=== PATIENT | male | born 1965 | race Caucasian/White ===

== ENCOUNTER 2020-11-03 12:05 | Emergency (ER) | payer MEDICARE, MEDICAID ==
[~2020-11-03] VITALS: Ht 180.3 cm; Wt 59.0 kg
--- NOTE | ~2020-11-03 | EMS ---
[address] [place] [address] EMS Patient Care Report Name: TRISTAN COLIN Room: [facility]#: [id number] Admission: 11/03/20 Attend Phys: Discharge: Date of : 63 Report #: [id number] THIS REPORT FOR: //name// Report Transmitted: 11/03/2020 11:48 EMS Care Summary [facility] [place] Incident [id number] @ 11/03/2020 11:31 Incident Location [address] [place] [id number] Patient TRISTAN COLIN Male, 55 Years 1965 Patient Address [place] [address] Patient History Cerebral infarction, unspecified,Chronic Obstructive Pulmonary Disease (COPD),Anxiety disorder, unspecified, Patient Allergies No known allergies, Chief Complaint Chest Pain Disposition Transported No Lights/[place] Dispatch Reason Chest Pain (Non-Traumatic) Transported To [facility] Narrative UPON OUR ARRIVAL THE PT WAS FOUND IN THE CARE OF [facility] AND WAS WALKED TO THE AMBULANCE. THE PT STATED THAT HE HAD BEEN EXPERIENCING SHARP AND STABBING PAIN IN HIS CHEST LAST NIGHT AND NOW WANTED TO BE SEEN FOR IT. THE PT HAD NO RADIATION AND THE PT RATED IT A 9/10 HE RESTED COMFORTABLY ON THE COT. THE PT HAD THE SAME PAIN UPON INSPIRATION AND PALPATION. THE PT WAS PROPERLY [address] [place] [address] EMS Patient Care Report Name: TRISTAN COLIN Room: [facility]#: [id number] Admission: 11/03/20 Attend Phys: Discharge: Date of : 63 Report #: [id number] SECURED USING THE SHEETS ON THE COT. ONCE ON THE AMBULANCE WE OBTAINED VITALS AND PLACED THE PT ONTO THE BRANCH OPERATIONS MANAGER TO OBTAIN A 12-LEAD. THE 12-LEAD SHOWED A REGULAR SINUS RHYTHM. A DETAILED PHYSICAL EXAM YIELDED NO FURTHER FINDINGS. I OBTAINED VASCULAR ACCESS IN THE PT'S LEFT BICEP USING AN 18 GAUGE IV CATHETER. THE IV SITE WAS FLUSHED, PATENT, AND SECURED USING A SALINE LOCK. THE PT WAS CONTINUOUSLY MONITORED DURING TRANSPORT AND I OBTAINED A SECOND SET OF VITALS PRIOR TO OUR ARRIVAL. AT THE HOSPITAL THE PT WAS MOVED INDOORS VIA THE COT AND THEN TRANSFERRED TO HIS BED WITH ASSISTANCE. PT REPORT WAS GIVEN TO THE RN IN THE ROOM AND PT CARE WAS TRANSFERRED WITH NO SIGNIFICANT CHANGES IN THE PT'S STATUS OR CONDITION. ALL TIMES ARE APPROXIMATE. Initial Vitals @11:36SpO2: 98, @11:56SpO2: 96, @11:45 @11:38P: 116,R: 18,BP: 108/60, @11:55P: 98,R: 16,BP: 128/80, @11:38GCS: 15, @11:55GCS: 15, @11:40Glucose: 94, Assessments @11:36MENTAL:SKIN:HEENT:LUNG SOUNDS:ABDOMEN:PELVIS//GI:EXTREMITIES:PULSE:NEURO: Impression Angina pectoris Procedures @11:39 cc () Site: Other Peripheral (Not Listed)Response: UnchangedSucceeded@11:40 cc () Response: UnchangedSucceeded@11:4512-Lead ECGResponse: UnchangedSucceeded Timeline 11:30,Call Received :,Dispatch Notified :,Psap Call 11:31,Dispatched 11:31,En Route 11:36,On Scene 11:36,At Patient 11:36,BP: / M,PULSE: ,RR: R,SPO2: 98 Ox,ETCO2: ,BG: ,PAIN: ,GCS: , 11:38,BP: 108/60 M,PULSE: 116,RR: 18 R,SPO2: Ox,ETCO2: ,BG: ,PAIN: ,GCS: , 11:38,BP: / M,PULSE: ,RR: R,SPO2: Ox,ETCO2: ,BG: ,PAIN: ,GCS: 15, 11:39, cc Site: Other Peripheral (Not Listed),Response: UnchangedSucceeded, 11:40, cc Site: ,Response: UnchangedSucceeded, [place] [address] EMS Patient Care Report Name: [facility]STAN COLIN [id number] Admission: 11/03/20 Attend Phys: Discharge: Date of : 63 Report #: [id number] 11:40,BP: / M,PULSE: ,RR: R,SPO2: Ox,ETCO2: ,B,PAIN: ,GCS: , 11:45,12-Lead ECG,Response: UnchangedSucceeded, 11:45,BP: / M,PULSE: ,RR: R,SPO2: Ox,ETCO2: ,BG: ,PAIN: ,GCS: , 11:47,Depart Scene 11:55,BP: 128/80 M,PULSE: 98,RR: 16 R,SPO2: Ox,ETCO2: ,BG: ,PAIN: ,GCS: , 11:55,BP: / M,PULSE: ,RR: R,SPO2: Ox,ETCO2: ,BG: ,PAIN: ,GCS: 15, 11:56,BP: / M,PULSE: ,RR: R,SPO2: 96 Ox,ETCO2: ,BG: ,PAIN: ,GCS: , 12:03,At Destination 12:18,Call Closed Disclaimer v1.1 Copyright 2020 [employer] This EMS Care Summary contains data elements from the applicable legal record (which may be displayed differently). It is designed to provide pertinent information for the following purposes: continuity of care, clinical quality, and state data reporting. The complete legal record is available to ED staff and administrators of the receiving hospital in [employer]. All data is provided "as is."
[~2020-11-03 12:05] MED LIST: ACCUNEB SO1.25 MG/1; BENZTROPINE MES1 MG PO; GEODON40 MG PO; INVEGA6 MG PO; MINIPRESS2 MG PO; PREDNISONE 10 M10 MG PO; PREDNISONE 20 M20 MG PO; PROAIR HFA8.5 GM INH; TOPAMAX 25 MG T25 M1 PO; VISTARIL 25 MG25 M1 PO; VITAMIN D3125 MC1 PO; [UNRECOGNIZED DRUG - OTHER] PO
[2020-11-03 12:16] VITALS: BP 134/72
--- NOTE | 2020-11-04 09:16 | EKG ---
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: : [id number] Requested By: Pierce Llanos Order Number: [id number] MD: Kobi Prescott Measurements Intervals [place] Rate: 98 P: 77 NE: 153 QRS: 67 QRSD: 100 T: 66 QT: 398 QTc: 509 Interpretive Statements Sinus rhythm Left atrial enlargement Left ventricular hypertrophy Prolonged QT interval No previous ECG available for comparison Electronically Signed On 11-04-2020 9:15:49 CDT by Kobi Prescott [email or web address] <ELECTRONICALLY SIGNED> By: Kobi Prescott MD, [facility] 11/04/2015 1208 1208 Kobi Prescott MD, [facility] /EPI
== END 2020-11-03 12:28 | disposition left against medical advice (07) ==
LOC: M.ERS 12:05
DX: R07.89 Other chest pain (principal); F17.210 Nicotine dependence, cigarettes, uncomplicated; Z88.8 Allergy status to other drugs, medicaments and biological substances; Z79.899 Other long term (current) drug therapy